=== PATIENT | male | born 1955 | race Hispanic/Latino ===

== ENCOUNTER 2017-10-24 16:32 | Emergency (ER) | payer OTHER ==
--- NOTE | 2017-10-24 17:49 | RAD REPORT ---
EXAM DESCRIPTION: CT - Soft Tissue Neck Wo Contr CLINICAL HISTORY: Throat pain and difficulty swallowing. COMPARISON: None. TECHNIQUE All CT scans are performed using dose optimization technique as appropriate and may includ e automated exposure control or mA/KV adjustment according to patient size. FINDINGS: Limited noncontrast CT is submitted. No radiopaque foreign body is visualized in the included aerodigestive tract. No extrinsic neck mass is identified. Parapharyngeal fat triangles are symmetric. Pharyngeal and greg ngeal structures are suboptimally visualized without IV, without findings suspicious for a mass seen. Left piriform sinus is underaerated relative to the right. Prominent anterior osteophytosis is seen along the anterior aspect of the cervical spine. Carotid calcifications seen. Upper lung taylor clear. No aggressive skull base abnormality. IMPRESSION: No radiopaque foreign body is suspected.
--- NOTE | 2017-10-24 19:03 | RAD REPORT ---
EXAM DESCRIPTION: RAD - Chest Pa And Lat (2 Views) - 10/24/2017 6:47 pm CLINICAL HISTORY: Cough COMPARISON: None. FINDINGS: Linear opacities in both lung bases posteriorly, representing atelectasis or aspiration. T he heart is mildly prominent in size. No displaced fractures.
--- NOTE | 2017-10-24 19:51 | RAD REPORT ---
EXAM DESCRIPTION: CT - Thorax Wo Con CLINICAL HISTORY: Chest pain, aspiration. COMPARISON: None FINDINGS: Mild linear opacities in both lung bases posteriorly most compatible with subsegmental ate lectasis. No focal infiltrate typical of pneumonia seen. No pleural thickening or pleural effusion. N o pneumothorax. No axillary, mediastinal or hilar adenopathy. No concerning bony finding. No gross upper abdominal finding. All CT scans are performed using dose optimization technique as appropriate and may include automated exposure control or mA/KV adjustment according to patient size. IMPRESSION: Linear atelectasis in both posterior lung bases.
--- NOTE | 2017-10-24 19:56 | EDPHYS ---
Physician Documentation [facility] Name: Chuyita Boateng Jr Age: 61 yrs Sex: Male : 1955 Arrival Date: 10/24/2017 Time: 16:34 Bed 8 Private MD: ED Physician Grupo Burton HPI: 10/25 10:52 This 61 yrs old Male presents to ER via Ambulatory with complaints of Foreign gs Body In Throat. 10:52 The patient or guardian reports the patient has a suspected foreign body, of the gs throat. The reported likely foreign body is piece of meat. Onset: The symptoms/episode began/occurred just prior to arrival, 2 hour(s) ago. Current symptoms: foreign body sensation. The patient has experienced similar episodes in the past, a few times. The patient has not recently seen a physician. Historical: - Allergies: 10/24 16:52 No Known Allergies; lk1 - PMHx: 16:52 Hypertension; High Cholesterol; mentally challenged; Sleep Apnea; Diabetes - NIDDM; lk1 Hypothyroidism; GERD; aspiration; - PSHx: 16:52 right toe; lk1 - Immunization history:: Adult Immunizations up to date. - Social history:: Smoking status: Patient/guardian denies using tobacco. ROS: 10/25 10:52 All other systems are negative. gs Exam: 10:52 Head/Face: Normocephalic, atraumatic. Eyes: Pupils equal round and reactive to light, gs extra-ocular motions intact. Lids and lashes normal. Conjunctiva and sclera are non-icteric and not injected. Cornea within normal limits. Periorbital areas with no swelling, redness, or edema. ENT: Nares patent. No nasal discharge, no septal abnormalities noted. Tympanic membranes are normal and external auditory canals are clear. Oropharynx with no redness, swelling, or masses, exudates, or evidence of obstruction, uvula midline. Mucous membranes moist. Neck: Trachea midline, no thyromegaly or masses palpated, and no cervical lymphadenopathy. Supple, full range of motion without nuchal rigidity, or vertebral point tenderness. No Meningismus. Chest/axilla: Normal chest wall appearance and motion. Nontender with no deformity. No lesions are appreciated. Cardiovascular: Regular rate and rhythm with a normal S1 and S2. No gallops, murmurs, or rubs. Normal PMI, no JVD. No pulse deficits. Respiratory: Lungs have equal breath sounds bilaterally, clear to auscultation and percussion. No rales, rhonchi or wheezes noted. No increased work of breathing, no retractions or nasal flaring. 10:52 Abdomen/GI: Soft, non-tender, with normal bowel sounds. No distension or tympany. No guarding or rebound. No evidence of tenderness throughout. Back: No spinal tenderness. No costovertebral tenderness. Full range of motion. Skin: Warm, dry with normal turgor. Normal color with no rashes, no lesions, and no evidence of cellulitis. MS/ Extremity: Pulses equal, no cyanosis. Neurovascular intact. Full, normal range of motion. Neuro: Awake and alert, GCS 15, oriented to person, place, time, and situation. Cranial nerves II-XII grossly intact. Motor strength 5/5 in all extremities. Sensory grossly intact. Cerebellar exam normal. Normal gait. 10:52 Constitutional: The patient appears in no acute distress, alert, awake. 10:52 Respiratory: Breath sounds: stridor, is not appreciated. Vital Signs: 10/24 16:52 BP 163 / 73; Pulse 96; Resp 20; Temp 97.7(TE); Pulse Ox 92% on R/A; Weight 99.79 kg lk1 (R); Height 6 ft. 0 in. (182.88 cm) (R); Pain 0/10; 18:00 BP 151 / 84; Pulse 87; Resp 18; Pulse Ox 96% on R/A; ph 19:13 BP 141 / 81; Pulse 83; Resp 18; Pulse Ox 95% on R/A; Pain 0/10; ph 20:02 BP 157 / 79; Pulse 93; Resp 18 S; Temp 97.4(O); Pulse Ox 96% ; bb 16:52 Body Mass Index 29.84 (99.79 kg, 182.88 cm) lk1 MDM: 17:10 Patient medically screened. gs 10/25 10:52 Data reviewed: vital signs, nurses notes. Response to treatment: the patient's symptoms gs have resolved after treatment, and as a result, I will discharge patient. ED course: ddx fb esphageal, tracheal, aspiration, pt back to baseline no regurgitation of liquids po, no aspiration on ct. 05/21 17:13 Order name: Soft Tissue Neck Wo Contr; Complete Time: 17:58 EDMS 10/24 18:07 Order name: XRAY Chest Pa And Lat (2 Views); Complete Time: 19:06 gs 10/24 19:07 Order name: CT Chest Wo Con; Complete Time: 19:54 gs Administered Medications: No medications were administered Disposition: 10/24/17 19:55 Discharged to Home. Impression: Abrasion of throat. - Condition is Stable. - Discharge Instructions: Dysphagia. - Medication Reconciliation Form, Thank You Letter, Antibiotic Education, Prescription Opioid Use form. - Follow up: Private Physician; When: 2 - 3 days; Reason: Re-evaluation by your physician. Signatures: Dispatcher [employer] Stephy Mccoy RN RN bb Shasha Rivas RN RN lk1 Grupo Burton MD MD gs Corrections: (The following items were deleted from the chart) 10/24 20:03 19:55 10/24/2017 19:55 Discharged to Home. Impression: Abrasion of throat. Condition is bb Stable. Forms are Medication Reconciliation Form, Thank You Letter, Antibiotic Education, Prescription Opioid Use. Follow up: Private Physician; When: 2 - 3 days; Reason: Re-evaluation by your physician. gs
--- NOTE | 2017-10-24 19:56 | ER ---
Nurse's Notes [facility] Name: Chuyita Boateng Jr Age: 61 yrs Sex: Male : 1955 Arrival Date: 10/24/2017 Time: 16:34 Bed 8 Private MD: Diagnosis: Abrasion of throat Presentation: 10/24 16:49 Presenting complaint: states: "He ate around 1530 and he suffers from aspiration. lk1 He feels like something is there and he cant pass it.". Transition of care: patient was not received from another setting of care. Onset of symptoms was October 24, 2017 at 15:30. Risk Assessment: Do you want to hurt yourself or someone else? Patient reports no desire to harm self or others. Initial Sepsis Screen: Does the patient meet any 2 criteria? No. Patient's initial sepsis screen is negative. Does the patient have a suspected source of infection? No. Patient's initial sepsis screen is negative. Care prior to arrival: None. 16:49 Method Of Arrival: Ambulatory lk1 16:49 Acuity: [place] 3 lk1 Historical: - Allergies: 16:52 No Known Allergies; lk1 - PMHx: 16:52 Hypertension; High Cholesterol; mentally challenged; Sleep Apnea; Diabetes - NIDDM; lk1 Hypothyroidism; GERD; aspiration; - PSHx: 16:52 right toe; lk1 - Immunization history:: Adult Immunizations up to date. - Social history:: Smoking status: Patient/guardian denies using tobacco. Screenin:37 Abuse screen: Denies threats or abuse. Denies injuries from another. Nutritional ph screening: No deficits noted. Tuberculosis screening: No symptoms or risk factors identified. Fall Risk None identified. Assessment: 17:29 General: Appears in no apparent distress. comfortable, well groomed, Behavior is calm, ph cooperative, Reports states, " He ate a hamburger at around 3 and afterwards he said he feels like a piece of it is stuck in his throat Denies fever, feeling ill. Pain: Denies pain. Neuro: Level of Consciousness is awake, alert, obeys commands, Oriented to person, place, time, situation. Cardiovascular: Capillary refill < 3 seconds in bilateral fingers Patient's skin is warm and dry. Respiratory: Reports shortness of breath at rest Airway is patent Respiratory effort is even, labored, Respiratory pattern is regular, symmetrical, Breath sounds are clear bilaterally. GI: Patient currently denies nausea, pain. Derm: Skin is intact, is healthy with good turgor, Skin is pink, warm \\T\\ dry. Musculoskeletal: Circulation, motion, and sensation intact. Range of motion: intact in all extremities. 18:16 Reassessment: Patient appears in no apparent distress at this time. Patient and/or ph family updated on plan of care and expected duration. Pain level reassessed. Patient is alert, oriented x 3, equal unlabored respirations, skin warm/dry/pink. Pt resting quietly, awaiting CXR, at bella=side. 19:11 Reassessment: Patient appears in no apparent distress at this time. Patient and/or ph family updated on plan of care and expected duration. Pain level reassessed. Patient is alert, oriented x 3, equal unlabored respirations, skin warm/dry/pink. Pt resting quietly, at bedside. 19:27 Reassessment: Patient appears in no apparent distress at this time. Patient states he lp1 does not feel like anything is stuck in throat Patient denies pain at this time. Patient states feeling better. Neuro: Level of Consciousness is awake, obeys commands. Respiratory: Respiratory effort is even, unlabored, Breath sounds are clear bilaterally. Derm: Skin is pink, warm \\T\\ dry. 20:02 Reassessment: Patient is alert, oriented x 3, equal unlabored respirations, skin bb warm/dry/pink. pt and spouse verbalized understanding of and agree to plan of care discharge instructions given pt ambulated with steady gait to exit accompanied by spouse. Vital Signs: 16:52 BP 163 / 73; Pulse 96; Resp 20; Temp 97.7(TE); Pulse Ox 92% on R/A; Weight 99.79 kg lk1 (R); Height 6 ft. 0 in. (182.88 cm) (R); Pain 0/10; 18:00 BP 151 / 84; Pulse 87; Resp 18; Pulse Ox 96% on R/A; ph 19:13 BP 141 / 81; Pulse 83; Resp 18; Pulse Ox 95% on R/A; Pain 0/10; ph 20:02 BP 157 / 79; Pulse 93; Resp 18 S; Temp 97.4(O); Pulse Ox 96% ; bb 16:52 Body Mass Index 29.84 (99.79 kg, 182.88 cm) lk1 ED Course: 16:34 Patient arrived in ED. mr 16:50 Triage completed. lk1 16:52 Arm band placed on right wrist. lk1 16:55 Grupo Burton MD is Attending Physician. gs 16:58 Blu Feng, RN is Primary Nurse. sg 17:33 CT completed. Patient tolerated procedure well. Patient moved to CT. Patient moved back nj from CT. 17:34 Soft Tissue Neck Wo Contr In Process Unspecified. EDMS 17:37 Patient has correct armband on for positive identification. Placed in gown. Bed in low ph position. Call light in reach. Side rails up X 1. Pulse ox on. Sitter at bedside. 18:01 No provider procedures requiring assistance completed. ph 18:38 Patient moved to radiology via wheelchair. jb2 18:47 XRAY Chest Pa And Lat (2 Views) In Process Unspecified. EDMS 18:48 X-ray completed. Patient tolerated procedure well. Patient moved back from radiology. jb2 19:[address] via stretcher. vm2 19:37 CT Chest Wo Con In Process Unspecified. EDMS 20:03 Patient did not have IV access during this emergency room visit. bb Administered Medications: No medications were administered Outcome: 19:55 Discharge ordered by . gs 20:03 Discharged to home ambulatory, with family. bb 20:03 Condition: stable 20:03 Discharge instructions given to patient, Instructed on discharge instructions, follow up and referral plans. Demonstrated understanding of instructions, follow-up care. 20:03 Patient left the ED. bb Signatures: Dispatcher [employer] EDMS Blu Feng, RN RN DaveyAna Antoni Coe jb2 Stephy Keen RN RN bb Jackie Amador, HAYDEN RN caren1 Katerina Spain RN RN Shasha Rivas RN RN lk1 Mahin Couch Victoria 2 Grupo Burton MD MD
== END 2017-10-24 20:03 | disposition home or self-care (01) ==
LOC: ER 16:32
DX: S10.11XA Abrasion of throat, initial encounter (principal); I10 Essential (primary) hypertension
CPT/HCPCS: 70490; 71046; 71250; 99285

== ENCOUNTER 2019-01-08 11:28 | Day surgery (SDC) | payer OTHER ==
[2019-01-05 12:28] LABS: Absolute Lymphocytes (CBC) 2.3 K/uL (0.7-4.9); Basophils % 0.2 % (0-1.3); Hematocrit 38.5 % (39.6-49.0); Lymphocytes % 34.1 % (15.3-44.8); MPV 10.3 fL (7.6-11.3); RBC Red Blood Cell Count 4.31 M/uL (4.33-5.43)
--- NOTE | 2019-01-05 12:33 | EKG ---
Test Date: 2019-01-05 Test Time: 11:40:25 Buyer Liaison: THONG MEASUREMENT RESULTS: Intervals: Rate: 62 ID: [id number] QRSD: 110 QT: 428 QTc: 434 [place]: P: 29 ID: [id number] QRS: 49 T: 78 INTERPRETIVE STATEMENTS: Normal sinus rhythm Incomplete right bundle branch block Borderline ECG Compared to ECG 07/04/2014 15:24:26 ST (T wave) deviation no longer present Electronically Signed On 01-05-19 12:32:34 CDT by Srinivas Boland
[2019-01-05 12:36] LABS: Potassium 4.4 mmol/L (3.5-5.1)
[2019-01-08] MEDS ORDERED: PHENYLEPHRINE 10% OPTH 5ML ONE (11:42)
[2019-01-08] MEDS ORDERED: NS 0.9% VIAL 10 ML ONE ×2 (11:47→14:15)
[2019-01-08] MEDS ORDERED: NA CHLORIDE 0.9% 1,000 ML ONE ×2 (12:20→14:46)
[2019-01-08] MEDS ORDERED: FENTANYL CITR 100 MCG/2 ML ONE (12:31)
[2019-01-08] MEDS ORDERED: LIDOCAINE 2% MPF 5 ML VIAL ONE (12:31)
[2019-01-08] MEDS ORDERED: PROPOFOL 200 MG/20 ML VIAL IV ONE (12:31)
[2019-01-08] MEDS ORDERED: MIDAZOLAM HCL 2 MG/2 ML INJ ONE (12:32)
[2019-01-08] MEDS ORDERED: CYCLOPENTOLATE 1% OPTH 2 ML ONE (12:42)
[2019-01-08] MEDS ORDERED: PHENYLEPHRINE 10% OPTH 5ML OPTH ONE ×2 (12:50→12:55)
[2019-01-08] MEDS ORDERED: CYCLOPENTOLATE 1% OPTH 2 ML OPTH ONE ×2 (12:50→12:55)
[2019-01-08] MEDS: BALANCED SALT IRRIG PLAIN 500 ML BTL IRR ONE ×2 (14:15→14:22)
[2019-01-08] MEDS ORDERED: Phenylephrine HCl 10 MG/ML 1 ML VIAL ONE (14:15)
[2019-01-08] MEDS: EPINEPHRINE/PF 1 MG/ML AMP ONE ×2 (14:17→14:22)
[2019-01-08] MEDS: MOXIFLOXACIN HCL 10 DROPS/ML **OR USE OPTH ONE ×2 (14:18→14:24)
[2019-01-08] MEDS: DUOVISC 1 KIT OPTH ONE ×2 (14:18→14:24)
--- NOTE | 2019-01-08 14:54 | P.BOP ---
Preoperative diagnosis: Nuclear sclerotic cataract OD Postoperative diagnosis: Same Primary procedure: Phacoemulsification with IOL OD Estimated blood loss: None Anesthesia: General Complications: None Implants: [id number] +24.5 Transferred to: Recovery Room Condition: Good
--- NOTE | 2019-01-09 02:14 | OP ---
Date of Procedure: 01/08/2019 Surgeon: Jahaira Strange MD Anesthesiologist: Torin Grimm CRNA and Deandre Epps MD Preoperative Diagnosis: Nuclear sclerotic cataract, right eye. Operation Performed: Phacoemulsification with intraocular lens implant, right eye. Anesthesia: Per cataract surgery. Complications: None. Description Of Procedure: In the operating room the patient was prepped and draped in the usual ster ile fashion for ophthalmic surgery. A lid speculum was placed in the right eye. Two paracentesis si benoit were made superiorly and inferiorly in the limbal cornea. Viscoat was placed in the anterior philomena mber and a crescent blade was used to make a corneal groove and tunnel, and a keratome was used to en ter the anterior chamber. Provisc was placed in the anterior chamber and a 360 degree capsulotomy wa s performed with a cystitome. The lens was hydrodissected with BSS and rotated freely. The lens was removed with a stop and chop technique. 21.34 phaco CDE was used to remove the lens. Residual refugio ex was removed with the irrigation and aspiration. Provisc was placed in the capsular bag. A SN60WF +24.5 lens was placed in the capsular bag without complications. Irrigation and aspiration was used to remove residual viscoelastic. The paracentesis sites were hydrated with BSS. The wound and para centesis sites were inspected and found to be watertight. Vigamox 0.07 cc was placed intracamerally at the end of the procedure. The eye was irrigated with balanced salt solution. The eye was patched with a soft cotton patch and [place] metal shield. The patient was returned to day surgery in good condition. Comments: Because of kyphosis, the patient was operated on superiorly. Discharge Instructions: Mr. Boateng is discharged to home in good condition and is to follow up with Dr. Strange in the morning. DAVEL/MODL Voice ID: [id number] Report ID: [id number]
== END 2019-01-08 16:26 | disposition home or self-care (01) ==
LOC: OR 11:28
PROVIDERS: ATTEND Ophthalmology Retina Specialist
PROC: 08RJ3JZ Replacement of Right Lens with Synthetic Substitute, Percutaneous Approach (ICD-10-PCS; principal; 2019-01-08 12:00)
DX: H25.11 Age-related nuclear cataract, right eye (principal); E11.9 Type 2 diabetes mellitus without complications; I10 Essential (primary) hypertension; J45.909 Unspecified asthma, uncomplicated; E78.00 Pure hypercholesterolemia, unspecified; G47.30 Sleep apnea, unspecified; K21.9 Gastro-esophageal reflux disease without esophagitis; Z83.511 Family history of glaucoma; Z83.3 Family history of diabetes mellitus
CPT/HCPCS: 66984; 93005; 85025; 80048; 36415; 82962 ×2; J2704; J0171; J2370; J2250; J3010; J7030 ×2